=== PATIENT | male | born 1955 | race Caucasian/White ===

== ENCOUNTER 2016-07-15 12:04 | Outpatient (CLI) | payer BC, OTHER | END 2016-07-15 23:59 | DX: I10 Essential (primary) hypertension (principal); E11.65 Type 2 diabetes mellitus with hyperglycemia ==

== ENCOUNTER 2024-01-19 08:45 | Outpatient (CLI) | payer BC, OTHER | END 2024-01-19 09:00 | disposition home or self-care (01) | LOC: LAB.N 08:45 | PROVIDERS: ATTEND Physician Assistant Medical | DX: B35.3 Tinea pedis (principal) | CPT/HCPCS: 87070; 87205 ==